=== PATIENT | female | born 1990 | race Caucasian/White ===

== ENCOUNTER 2022-04-04 15:00 | Emergency (ER) | payer BC ==
[2022-04-04] MEDS ORDERED: Cetirizine 10 MG Tab PO SCH (15:30)
[2022-04-04] MEDS ORDERED: predniSONE 20 MG Tab PO ONE (16:02)
== END 2022-04-04 16:10 | disposition home or self-care (01) ==
LOC: KA.ED 15:00
DX: L50.0 Allergic urticaria (principal); Z88.0 Allergy status to penicillin; Z88.1 Allergy status to other antibiotic agents
CPT/HCPCS: 99282; 99284; A9270-GY; J7512